=== PATIENT | male | born 1985 | race Caucasian/White ===

== ENCOUNTER 2018-02-08 17:52 | Emergency (ER) | payer OTHER ==
[~2018-02-08] VITALS: Ht 172.7 cm; Wt 88.5 kg
[2018-02-08] MEDS ORDERED: WELLBUTRIN SR100 MG ORAL (18:08)
[2018-02-08 18:13] VITALS: BP 124/77
[2018-02-08] MEDS ORDERED: IBUPROFEN600 MG ORAL (18:55)
[2018-02-08 19:00] VITALS: BP 124/77
--- NOTE | 2018-02-08 21:40 | Emergency Room Report ---
History of Present Illness General Chief Complaint: Syncope Source: Patient Present Illness HPI 32-year-old male resents to ED status post syncopal episode. States that he was lifting in the gym when he felt dizzy and passed out. Witnessed falling backwards and hitting his head. Patient states he woke up from the ground and completed his workout. Patient is complaining of pain to the back of his head, 3 out of 10, dull, nonradiating. Denies any neck pain. Denies any chest pain or shortness of breath. Denies any dizziness. States that the gym was very hot today, felt stuffy. 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 Denies any cardiac history. No other aggravating relieving factors. Denies any other associated symptoms Allergies: Coded Allergies: No Known Allergies (Unverified , 02/08/18) Patient History Past Medical History: none Past Surgical History: none Pertinent Family History: none Social History: Denies: smoking, alcohol use, drug use Immunizations: UTD Reviewed Nursing Documentation: PMH: Agreed; PSxH: Agreed Review of Systems All Other Systems: negative except mentioned in HPI Physical Exam Vital Signs Date Time Temp Pulse Resp B/P (MAP) Pulse Ox O2 Delivery O2 Flow Rate FiO2 02/08/18 18:03 98.1 91 17 124/77 96 Room Air 98.1 Sp02 EP Interpretation: reviewed, normal General Appearance: no apparent distress, alert, GCS 15, non-toxic Head: normocephalic, atraumatic Eyes: bilateral eye normal inspection, bilateral eye PERRL ENT: hearing grossly normal, normal pharynx, no angioedema, normal voice Neck: full range of motion, supple/symm/no masses Respiratory: chest non-tender, lungs clear, normal breath sounds, speaking full sentences Cardiovascular #1: regular rate, rhythm, no edema Cardiovascular #2: 2+ carotid (R), 2+ carotid (L), 2+ radial (R), 2+ radial (L) , 2+ dorsalis pedis (R), 2+ dorsalis pedis (L) Gastrointestinal: normal bowel sounds, non tender, soft, non-distended, no guarding, no rebound Rectal: deferred Genitourinary: normal inspection, no CVA tenderness Musculoskeletal: back normal, gait/station normal, normal range of motion, non- tender Neurologic: alert, oriented x3, responsive, motor strength/tone normal, sensory intact, speech normal Psychiatric: judgement/insight normal, memory normal, mood/affect normal, no suicidal/homicidal ideation Reflexes: 3+ bicep (R), 3+ bicep (L), 3+ tricep (R), 3+ tricep (L), 3+ knee (R) , 3+ knee (L) Skin: normal color, no rash, warm/dry, well hydrated Lymphatic: no adenopathy Medical Decision Making Diagnostic Impression: Primary Impression: Head injury Qualified Codes: S09.90XA - Unspecified injury of head, initial encounter Additional Impression: Syncope Qualified Codes: R55 - Syncope and collapse ER Course Hospital Course 32 yo M presents to ED c/o headache, s/p syncope. Differential diagnoses include: skull fx, intracranial injury, concussion Clinical course Patient placed on stretcher. After initial history and physical I ordered CT head and EKG CT head shows no acute process. EKG - NSR, no acute ischemic changes interpreted by me Discussed findings with the patient. Given no cardiac risk factors, I dont believe further workup indicated at this time. Patient safely discharged recommend close follow-up with PMD Diagnosis - head injury, syncope Stable and discharged to home. Followup with PMD. Return to ED if symptoms recur or worsen EKG Diagnostic Results Rate: normal Rhythm: NSR ST Segments: no acute changes ASA given to the pt in ED: No Rhythm Strip Diag. Results EP Interpretation: yes Rhythm: NSR, no PVC's, no ectopy CT/MRI/US Diagnostic Results CT/MRI/US Diagnostic Results : Imaging Test Ordered: CT Head Impression no acute process Last Vital Signs Date Time Temp Pulse Resp B/P (MAP) Pulse Ox O2 Delivery O2 Flow Rate FiO2 02/08/18 19:00 98.1 70 17 124/77 96 Room Air 98.1 Status: improved Disposition: HOME, SELF-CARE Condition: Stable Scripts Ibuprofen* (MOTRIN*) 600 Mg Tablet 600 MG ORAL Q8H PRN for For Pain, #30 TAB 0 Refills Prov: Matthew Vega MD 02/08/18 Referrals: [facility] (PCP) Patient Instructions: Head Injury, Adult, Syncope Matthew Vega MD Feb 08, 2018 21:40
--- NOTE | 2018-02-09 09:13 | Diagnostic Imaging Report ---
Indication: Syncopal episode today Technique: Continuous helical CT scanning of the head was performed without intravenous contrast material. Axial and coronal 5 mm sections were generated. Radiation dose was minimized using automated exposure control Dose: Total Dose Length Product - DLP 1351.[address] Dose Index - CTDIvol(s) 70.38 mGy. Comparison: none Findings: The ventricular system is normal in size and configuration. There is no shift of midline structures. No abnormal extra-axial fluid collections are noted. There is no evidence of intracerebral bleeding. No other abnormal high or low density areas are noted within the brain. Normal trejo-white differentiation. There is considerable ethmoid sinus mucosal thickening. The orbits are unremarkable. The mastoids are clear. Impression: Normal CT scan of the head without contrast material. Incidental finding of sinus disease This agrees with the preliminary interpretation provided overnight by [facility]. The CT scanner at [facility] is accredited by the [employer] and the scans are performed using protocols designed to limit radiation exposure to as low as reasonably achievable to attain images of sufficient resolution adequate for diagnostic evaluation.
== END 2018-02-08 19:00 | disposition home or self-care (01) ==
LOC: EMR 18:41
DX: S09.8XXA Other specified injuries of head, initial encounter (principal); W19.XXXA Unspecified fall, initial encounter; Y93.B3 Activity, free weights; Y92.39 Other specified sports and athletic area as the place of occurrence of the external cause; R55 Syncope and collapse
CPT/HCPCS: 70450; 93005; 99284

== ENCOUNTER 2018-04-01 17:34 | Emergency (ER) | payer OTHER ==
[~2018-04-01] VITALS: Ht 172.7 cm; Wt 90.7 kg
[~2018-04-01 17:34] MED LIST: IBUPROFEN600 MG ORAL; WELLBUTRIN SR100 MG ORAL
[2018-04-01 17:47] VITALS: BP 131/65
[2018-04-01] MEDS ORDERED: Lidocaine 1% Plain 30 ml INJ ONE (18:00)
[2018-04-01] MEDS ORDERED: Bacitracin Oint UD TOPIC ONE (18:15)
--- NOTE | 2018-04-01 18:39 | Emergency Room Report ---
History of Present Illness General Chief Complaint: General Complaint Source: Patient Present Illness HPI Pt. presents to the ED c/o 03/31 in severity pain, swelling, and erythema of the left great toe. Reports purulent drainage from the cuticle area of his toe. Patient reports he's been doing warm water soaks. Patient reports that he has had an ingrown toenail for quite some time however it is now painful and infected. Denies fevers or chills. Denies numbness tingling or loss of sensation or gross motor movements of the extremities, incontinence of bowel or bladder. Denies CP, Palpitations, LOC, AMS, dizziness, Changes in Vision, weakness or a sudden severe headache. Allergies: Coded Allergies: No Known Allergies (Unverified , 02/08/18) Patient History Past Medical History: see triage record Past Surgical History: none Nursing Documentation-[facility] Past Medical History: No History, Except For Review of Systems All Other Systems: negative except mentioned in HPI Physical Exam Vital Signs Date Time Temp Pulse Resp B/P (MAP) Pulse Ox O2 Delivery O2 Flow Rate FiO2 04/01/18 17:40 97.7 94 20 131/65 95 Room Air 97.7 Sp02 EP Interpretation: reviewed, normal General Appearance: no apparent distress, alert, GCS 15, non-toxic Head: normocephalic, atraumatic Eyes: bilateral eye normal inspection, bilateral eye PERRL ENT: hearing grossly normal, normal voice Neck: full range of motion Respiratory: lungs clear, normal breath sounds, speaking full sentences Cardiovascular #1: regular rate, rhythm, normal capillary refill Musculoskeletal: back normal, gait/station normal, normal range of motion, inflammation - cuticle lines of the right great toe, ingrown nail on both sided , swelling and erythema noted. Neurologic: alert, oriented x3, responsive, motor strength/tone normal, sensory intact, speech normal, grossly normal Psychiatric: judgement/insight normal Skin: normal color, no rash, warm/dry, well hydrated Procedures Additional Procedure Procedure Narrative Wedge resection procedure: - verbal permission was obtained. - extremity involved is the Right Great Toe -5cc of Lidocaine 1% plain was injected in a digital block fashion, good anesthesia was obtained. - The extremity was Cleaned and draped in a sterile fashion - The each lateral aspect of the nail was exposed and isolated from the nail bed. -Section of the lateral aspect of the nail was cut by sterile scissors. - bleeding was controlled with direct pressure. -Sterile dressing was applied. Pt. tolerated the procedure well, there were no complications. Medical Decision Making PA Attestation Dr. Buchanan is my supervising Physician whom patient management has been discussed with. Diagnostic Impression: Primary Impression: Ingrown toenail of left foot with infection ER Course Pt. presents to the ED c/o 03/31 in severity pain, swelling, and erythema of the left great toe. Reports purulent drainage from the cuticle area of his toe. Patient reports he's been doing warm water soaks. Patient reports that he has had an ingrown toenail for quite some time however it is now painful and infected. Denies fevers or chills. Denies numbness tingling or loss of sensation or gross motor movements of the extremities, incontinence of bowel or bladder. Denies CP, Palpitations, LOC, AMS, dizziness, Changes in Vision, weakness or a sudden severe headache. Ddx considered but are not limited to cellulitis, paronychia, eponychia, ingrown toe nail, fracture, d/L, gout Vital signs: are WNL, pt. is afebrile H&PE are most consistent with ingrown toe nail of the left great toe, secondary infection noted. ORDERS: none required at this time, the diagnosis is clinical ED INTERVENTIONS: - verbal consent was received . - Wedge Resection procedure performed -Patient is provided with crutches and instructed on their use - will d/c pt. with PO abx. DISCHARGE: At this time pt. is stable for d/c to home. Will provide printed patient care instructions, and any necessary prescriptions. Care plan and follow up instructions have been discussed with the patient prior to discharge. Last Vital Signs Date Time Temp Pulse Resp B/P (MAP) Pulse Ox O2 Delivery O2 Flow Rate FiO2 04/01/18 17:47 97.7 20 131/65 95 Room Air 97.7 04/01/18 17:40 94 Disposition: HOME, SELF-CARE Condition: Stable Scripts Bacitracin/Polymyxin B Sulfate (BACITRACIN-POLYMYXIN OINTMENT) 28.35 Gm Oint...g. 1 APPLIC TP BID, #28.3 GM Prov: Katie Aj 04/01/18 Ibuprofen* (MOTRIN*) 600 Mg Tablet 600 MG ORAL THREE TIMES A DAY, #30 TAB 0 Refills Prov: Katie Aj 04/01/18 Hydrocodone Bit/Acetaminophen 5-325* (NORCO 5-325*) 1 Each Tablet 1 TAB ORAL Q6H PRN for For Pain, #9 TAB 0 Refills Prov: Katie Aj 04/01/18 Clindamycin Hcl (CLINDAMYCIN HCL) 300 Mg Capsule 300 MG ORAL FOUR TIMES A DAY for 7 Days, #28 CAP Prov: Katie Aj 04/01/18 Referrals: [facility] (PCP) Patient Instructions: Ingrown Toenail, Paronychia Additional Instructions: Take medications as directed. Follow up with a Primary Care Provider in 3-5 days, even if your symptoms have resolved. Return sooner to ED if new symptoms occur, or current symptoms become worse. Do not drink alcohol, drive, or operate heavy machinery while taking [place] as this may cause drowsiness. - Please note that this Emergency Department Report was dictated using [employer] management coordinator technology software, occasionally this can lead to erroneous entry secondary to interpretation by the dictation equipment. Katie Aj Apr 01, 2018 18:39
[2018-04-01] MEDS ORDERED: IBUPROFEN600 MG ORAL (19:22)
[2018-04-01] MEDS ORDERED: CLINDAMYCIN HC300 MG ORAL (19:22)
[2018-04-01] MEDS ORDERED: NORCO 5-325 TA1 EACH ORAL (19:22)
[2018-04-01] MEDS ORDERED: BACITRACIN-P28.35 GM TP (19:22)
[2018-04-01 19:45] VITALS: BP 131/65
== END 2018-04-01 19:46 | disposition home or self-care (01) ==
LOC: EMR 17:58
DX: L60.0 Ingrowing nail (principal); L08.9 Local infection of the skin and subcutaneous tissue, unspecified
CPT/HCPCS: 11765; 99283; J2001; Z7502

== ENCOUNTER 2018-12-09 15:07 | Emergency (ER) | payer OTHER ==
[~2018-12-09] VITALS: Ht 172.7 cm; Wt 79.4 kg
[~2018-12-09 15:07] MED LIST changes: +BACITRACIN-P28.35 GM TP; +CLINDAMYCIN HC300 MG ORAL; +NORCO 5-325 TA1 EACH ORAL
[2018-12-09] MEDS ORDERED: BUPROPION XL300 MG ORAL (15:20)
[2018-12-09] MEDS ORDERED: Lidocaine 1% Plain 30 ml INJ ONE (15:30)
[2018-12-09] MEDS ORDERED: Bacitracin Oint UD TOPIC ONE (15:30)
--- NOTE | 2018-12-09 15:32 | Emergency Room Report ---
History of Present Illness General Chief Complaint: Skin Rash/Abscess Source: Patient Present Illness HPI 33-year-old male patient presents ER complaining of "I think I have an ingrown toenail". Reports symptoms have been present for the past 2 weeks. Reports pain in his right big toe. Reports history of similar symptoms in the past, states he was treated here and had a wedge resection performed. Denies drainage from toe. Denies fever, chest pain, shortness of breath. Reports he was not able to follow-up with [facility] following his initial visit. 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 Allergies: Coded Allergies: No Known Allergies (Unverified , 02/08/18) Patient History Past Medical History: see triage record Reviewed Nursing Documentation: PMH: Agreed; PSxH: Agreed Nursing Documentation-PMH Past Medical History: No History, Except For Hx Neurological Problems: Yes - depression Review of Systems All Other Systems: negative except mentioned in HPI Physical Exam Vital Signs Date Time Temp Pulse Resp B/P (MAP) Pulse Ox O2 Delivery O2 Flow Rate FiO2 12/09/18 15:17 98.1 95 14 121/75 97 Room Air Sp02 EP Interpretation: reviewed, normal General Appearance: well appearing, no apparent distress, alert, GCS 15, non- toxic Head: normocephalic, atraumatic Eyes: bilateral eye normal inspection, bilateral eye PERRL ENT: hearing grossly normal, normal pharynx, no angioedema, normal voice, uvula midline, moist mucus membranes Neck: full range of motion Respiratory: lungs clear, normal breath sounds, no rhonchi, no respiratory distress, no accessory muscle use, no wheezing, speaking full sentences Cardiovascular #1: regular rate, rhythm, no edema Cardiovascular #2: 2+ dorsalis pedis (R), 2+ dorsalis pedis (L) Musculoskeletal: back normal, digits/nails normal, gait/station normal, normal range of motion, non-tender Psychiatric: mood/affect normal Skin: other - Obvious ingrown toenail of right big toe with subcutaneous pus noted at the medial nail border, no surrounding erythema or edema, no drainage, no felon Procedures Additional Procedure Procedure Narrative Ingrown toenail. Obtained verbal consent for procedure. Toenail and surrounding areas cleaned and prepped with Betadine solution and normal saline. Digital block performed using 5ml 1% lidocaine without epi. After achieving appropriate anesthesia, nail freed from nail bed with blunt dissection using hemostats and dissected section removed after cutting with scissors. Direct pressure used to achieve hemostasis. Toe was then flushed with copious amounts of saline, bacitracin, Xeroform, gauze and tape were applied. Patient tolerated procedure well without complication WBAT with post-op shoe. Will discharge home with abx and pain medication. Medical Decision Making PA Attestation Dr. Vega is my supervising Physician whom patient management has been discussed with. Diagnostic Impression: Primary Impression: Ingrown toenail ER Course Pt. presents to the ED c/o toe pain. Ddx considered but are not limited to ingrown toenail, nail avulsion, paronychia , felon, cellulitis, tinea unguinum. Vital signs: are WNL, pt. is afebrile ER COURSE: Physical exam shows: ingrown toenail noted with superimposed infection See procedure note for wedge resection of medial toenail of right big toe performed. Informed patient can wash it tomorrow, but do not soak in water. Apply topical abx and redress wound. Followup with [facility]/PCP in 1-2 weeks, provided with contact information for [facility], contact to schedule appt. Wound check in 2-3 days. ER precautions given. Will discharge patient home with oral and topical abx. Take Tylenol for pain ER precautions given. DISCHARGE: At this time pt is stable for d/c to home. Patient is resting comfortably, in no acute distress, nontoxic appearing, talking without difficulty. Patient to take medications as instructed Will provide with patient care instructions and any necessary prescriptions. Care plan and follow-up instructions provided. Patient instructed to follow-up with primary care provider in 3 - 5 days. Patient questions asked and answered. Patient reports understanding and agreement to treatment plan. ER precautions given. Patient instructed to return to ER immediately for any new or worsening of symptoms including but not limited to increasing SOB, persistent fever, chest pain, intractable vomiting. - Please note that this Emergency Department Report was dictated using [employer] greaser technology software, occasionally this can lead to erroneous entry secondary to interpretation by the dictation equipment. Last Vital Signs Date Time Temp Pulse Resp B/P (MAP) Pulse Ox O2 Delivery O2 Flow Rate FiO2 12/09/18 15:17 98.1 95 14 121/75 97 Room Air Status: improved Disposition: HOME, SELF-CARE Condition: Stable Scripts Acetaminophen* (TYLENOL EXTRA STRENGTH*) 500 Mg Tablet 500 MG ORAL Q8H PRN for Prn Headache/Temp > 101, #30 TAB 0 Refills Prov: Maximo Lewis 12/09/18 Bacitracin/Polymyxin B Sulfate (BACITRACIN-POLYMYXIN OINTMENT) 28.35 Gm Oint...g. 1 APPLIC TP BID, #28 GM Prov: Maximo Lewis 12/09/18 Amoxicillin/Potassium Clav 875-125* (AUGMENTIN 875-125 TABLET*) 1 Each Tablet 1 TAB ORAL TWICE A DAY for 7 Days, #14 TAB Prov: Maximo Lewis 12/09/18 Patient Instructions: Ingrown Toenail Additional Instructions: Followup with primary care provider/[facility] or return to ER in 2-3 days for wound check. Followup with [facility] in 1-2 weeks. Follow-up with [facility]. Keep clean and dry. Take medications as directed. Take Tylenol as needed for pain and swelling symptoms. Patient questions asked and answered. ER precautions given, patient instructed to return to ER immediately for any new or worsening of symptoms. Maximo Lewis Dec 09, 2018 15:32
[2018-12-09 15:37] VITALS: BP 121/75
[2018-12-09] MEDS ORDERED: TYLENOL EXTRA500 MG ORAL (16:20)
[2018-12-09] MEDS ORDERED: BACITRACIN-P28.35 GM TP (16:20)
[2018-12-09] MEDS ORDERED: AUGMENTIN 875-1 EAC1 ORAL (16:20)
[2018-12-09 16:39] VITALS: BP 121/75
== END 2018-12-09 16:40 | disposition home or self-care (01) ==
LOC: EMR 15:30
DX: L60.0 Ingrowing nail (principal); M25.571 Pain in right ankle and joints of right foot; F32.9 Major depressive disorder, single episode, unspecified
CPT/HCPCS: 11750; 99283; J2001; Z7502

== ENCOUNTER 2019-03-08 20:57 | Emergency (ER) | payer OTHER ==
[~2019-03-08] VITALS: Ht 170.2 cm; Wt 88.0 kg
[~2019-03-08 20:57] MED LIST changes: +AUGMENTIN 875-1 EAC1 ORAL; +BUPROPION XL300 MG ORAL; +TYLENOL EXTRA500 MG ORAL
--- NOTE | 2019-03-08 22:00 | NUR ---
ED Nurse Note: Pt ambulated to ED from home c/o 05/31 pain in L big toe, ingrown and red. Painful to walk. VSS. patient is alert and oriented x4, states that he does not know how long this has been. will wait for further orders
[2019-03-08] MEDS ORDERED: Bacitracin Oint UD TOPIC ONE (22:09)
[2019-03-08] MEDS ORDERED: DOXYCYCLINE MO100 MG ORAL (22:12)
[2019-03-08] MEDS ORDERED: MUPIROCIN22 GM TOPIC (22:12)
[2019-03-08] MEDS ORDERED: IBUPROFEN600 MG ORAL (22:12)
--- NOTE | 2019-03-08 22:13 | Emergency Room Report ---
History of Present Illness General Chief Complaint: Lower Extremity Injury Source: Patient Present Illness HPI 33-year-old male with history of ingrown toenail. He presents with chief complaint of painful ingrown toenail. Is been ongoing for a long period time but worse in the last week. Mostly to the left toe. No drainage but redness and swelling. He is try to remove it himself but unsuccessful. Pain is 8 out of 10. No nausea no vomiting. No fever chills. Allergies: Coded Allergies: No Known Allergies (Unverified , 02/08/18) Patient History Past Medical History: see triage record, old chart reviewed Past Surgical History: none Pertinent Family History: none Social History: Denies: smoking Immunizations: other Reviewed Nursing Documentation: PMH: Agreed; PSxH: Agreed Nursing Documentation-PMH Hx Gastrointestinal Problems: Yes - umbilical hernia Hx Neurological Problems: Yes - depression Review of Systems Eye: Denies: eye pain, blurred vision ENT: Denies: ear pain, nose congestion, throat swelling Respiratory: Denies: cough, shortness of breath Cardiovascular: Denies: chest pain, palpitations Gastrointestinal: Denies: abdominal pain, diarrhea, nausea, vomiting Musculoskeletal: Denies: back pain, joint pain Skin: Denies: rash Neurological: Denies: headache, numbness Endocrine: Denies: increased thirst, increased urine Hematologic/Lymphatic: Denies: easy bruising All Other Systems: negative except mentioned in HPI Physical Exam Vital Signs Date Time Temp Pulse Resp B/P (MAP) Pulse Ox O2 Delivery O2 Flow Rate FiO2 03/08/19 21:36 97.5 77 18 125/71 (89) 93 Room Air Vitals normal Sp02 EP Interpretation: reviewed, normal General Appearance: well appearing, no apparent distress, alert Head: normocephalic, atraumatic Eyes: bilateral eye PERRL, bilateral eye EOMI ENT: hearing grossly normal, normal pharynx Neck: full range of motion, supple, no meningismus Respiratory: chest non-tender, lungs clear, normal breath sounds Cardiovascular #1: regular rate, rhythm, no murmur Gastrointestinal: normal bowel sounds, non tender, no mass, no organomegaly, no bruit, non-distended Musculoskeletal: back normal, gait/station normal, normal range of motion, other - Onychomycosis toes. Toe: On the lateral aspect of the nail is ingrown and erythema. No drainage. Psychiatric: mood/affect normal Procedures Additional Procedure Procedure Narrative Procedure: Partial matrixectomy Indication: Infected ingrown toenail Description: I did a digital block and local anesthetic with 1% lidocaine without epinephrine. I remove part of the toenail. Patient tolerated procedure without any problem. Medical Decision Making Diagnostic Impression: Primary Impression: Ingrown toenail with infection ER Course With infected ingrown toenail. No evidence of abscess. Will discharge home. Last Vital Signs Date Time Temp Pulse Resp B/P (MAP) Pulse Ox O2 Delivery O2 Flow Rate FiO2 03/08/19 21:36 97.5 77 18 125/71 (89) 93 Room Air Status: improved Disposition: HOME, SELF-CARE Condition: Stable Scripts Ibuprofen* (MOTRIN*) 600 Mg Tablet 600 MG ORAL THREE TIMES A DAY, #30 TAB 0 Refills Prov: Wil Sim MD 03/08/19 Doxycycline Monohydrate* (DOXYCYCLINE MONOHYDRATE*) 100 Mg Capsule 100 MG ORAL Q12H, #14 CAP 0 Refills Prov: Wil Sim MD 03/08/19 Mupirocin* (MUPIROCIN*) 22 Gm Oint...g. 1 APPLIC TOPIC THREE TIMES A DAY, #22 GM Prov: Wil Sim MD 03/08/19 Additional Instructions: Keep wound clean. Follow-up in 7 days for recheck. Return if worse. Wil Sim MD Mar 08, 2019 22:13
[2019-03-08 23:00] VITALS: BP 125/71
--- NOTE | 2019-03-08 23:00 | NUR ---
ER DISCHARGE NOTE: Patient is cleared to be discharged per ERMD, pt is aox4, on room air, with stable vital signs. pt was given dc and prescription instructions, pt was able to verbalize understanding, pt id band removed without complications. pt is able to ambulate with steady gait. pt took all belongings.
[2019-03-09] MEDS ORDERED: Bacitracin Oint UD TOPIC ONE
== END 2019-03-08 23:15 | disposition home or self-care (01) ==
LOC: EMR 21:15
DX: L60.0 Ingrowing nail (principal); K42.9 Umbilical hernia without obstruction or gangrene; F32.9 Major depressive disorder, single episode, unspecified
CPT/HCPCS: 99283

== ENCOUNTER 2019-07-01 16:12 | Emergency (ER) | payer OTHER ==
[~2019-07-01] VITALS: Ht 172.7 cm; Wt 83.9 kg
[~2019-07-01 16:12] MED LIST changes: +DOXYCYCLINE MO100 MG ORAL; +MUPIROCIN22 GM TOPIC
[2019-07-01 16:28] VITALS: BP 160/78
--- NOTE | 2019-07-01 16:46 | Emergency Room Report ---
History of Present Illness General Chief Complaint: Skin Rash/Abscess Source: Patient, Medical Record Present Illness HPI 34-year-old male with history of recurrent ingrown toenail due to wearing improper shoes and workout here complaining of another toe infection and ingrown toenail x2 days. Patient reports that he has not yet been seen by cut out worker as it is difficult for him to get a referral through his primary. Patient was recently seen for the same complaint back in February 2019 and prior to that few months prior to February. Has not yet made an appointment with cut out worker. Denies fever and chills, has not taken medication for symptom relief. Patient demands for the toenail to be removed and reports that the last time that it was removed [facility] it was done incorrectly. Patient has full range of motion and no motor or sensory deficits noted. Rating pain 10/10 without radiation. Mild cellulitic changes noted around toenail however seems like it is secondary to infection post removal of the part of toenail. Allergies: Coded Allergies: No Known Allergies (Unverified , 02/08/18) Patient History Past Medical History: see triage record Past Surgical History: unable to obtain Pertinent Family History: none Immunizations: UTD Reviewed Nursing Documentation: PMH: Agreed; PSxH: Agreed Nursing Documentation-PMH Hx Gastrointestinal Problems: Yes - umbilical hernia Hx Neurological Problems: Yes - depression Review of Systems All Other Systems: negative except mentioned in HPI Physical Exam Vital Signs Date Time Temp Pulse Resp B/P (MAP) Pulse Ox O2 Delivery O2 Flow Rate FiO2 07/01/19 16:28 98.4 100 18 160/78 (105) 95 Room Air Sp02 EP Interpretation: reviewed, normal General Appearance: no apparent distress, alert, GCS 15, non-toxic Head: normocephalic, atraumatic Eyes: bilateral eye normal inspection, bilateral eye PERRL ENT: hearing grossly normal, normal pharynx, no angioedema, normal voice Neck: full range of motion, supple/symm/no masses Respiratory: chest non-tender, lungs clear, normal breath sounds, no rhonchi, no wheezing, speaking full sentences Cardiovascular #1: regular rate, rhythm, no edema, no murmur, normal capillary refill Cardiovascular #2: 2+ dorsalis pedis (R), 2+ dorsalis pedis (L) Gastrointestinal: normal bowel sounds, non tender, soft, non-distended, no guarding, no rebound Rectal: deferred Genitourinary: no CVA tenderness Musculoskeletal: gait/station normal, normal range of motion, non-tender, no calf tenderness, swelling - right big toe Neurologic: alert, oriented x3, responsive, motor strength/tone normal, sensory intact, speech normal Psychiatric: judgement/insight normal, memory normal, mood/affect normal, no suicidal/homicidal ideation Skin: other - cellulitis right big toe Lymphatic: no adenopathy Medical Decision Making PA Attestation Diagnosis and treatment plans were reviewed and discussed with my supervising physician Dr. Whitten Diagnostic Impression: Primary Impression: Infection of toenail ER Course 34-year-old male with history of recurrent ingrown toenail due to wearing improper shoes and workout here complaining of another toe infection and ingrown toenail x2 days. Patient reports that he has not yet been seen by cut out worker as it is difficult for him to get a referral through his primary. Patient was recently seen for the same complaint back in February 2019 and prior to that few months prior to February. Has not yet made an appointment with cut out worker. Denies fever and chills, has not taken medication for symptom relief. Patient demands for the toenail to be removed and reports that the last time that it was removed [facility] it was done incorrectly. Patient has full range of motion and no motor or sensory deficits noted. Rating pain 10/10 without radiation. Mild cellulitic changes noted around toenail however seems like it is secondary to infection post removal of the part of toenail. Ddx considered but are not limited to : Cellulitis, infected ingrown toenail, superficial infection, abscess Vital signs: are WNL, pt. is afebrile H&PE are most consistent with: Infected toenail secondary to ingrown toenail ORDERS: Keflex, ibuprofen ED INTERVENTIONS: None required at this time. DISCHARGE: At this time pt. is stable for d/c to home. Will provide printed patient care instructions, and any necessary prescriptions. Care plan and follow up instructions have been discussed with the patient prior to discharge. Due to recurrences of the same infection and ingrown toenail patient to follow -up with cut out worker as this is not recommended at this time to be removed for more time in the emergency room setting. Also patient reports fever proper sandals and avoid strenuous physical activity and pressure to the foot. And follow-up with primary care. If worsening symptoms return to the emergency room. Last Vital Signs Date Time Temp Pulse Resp B/P (MAP) Pulse Ox O2 Delivery O2 Flow Rate FiO2 07/01/19 16:28 98.4 100 18 160/78 (105) 95 Room Air Disposition: HOME, SELF-CARE Condition: Stable Scripts Mupirocin (MUPIROCIN) 15 Gm Cream..g. 1 APPLIC TOPIC THREE TIMES A DAY, #15 GM Prov: Patrica Devlin 07/01/19 Ibuprofen (Ibu) 800 Mg Tablet 800 MG PO TID, #30 TAB Prov: Patrica Devlin 07/01/19 Cephalexin* (KEFLEX*) 500 Mg Capsule 500 MG ORAL EVERY 6 HOURS for 7 Days, #28 CAP Prov: Patrica Devlin 07/01/19 Patient Instructions: Ingrown Toenail Additional Instructions: Follow-up with cut out worker regarding your ingrown toenail as it is now infected secondary to the previous removal. This is a recurrent issue that you need to be seen by a cut out worker. At this time the infection is over the site of previous ingrown toenail removal. It is not mariee for any further removal in the emergency room setting. Avoid wearing compact and tight shoes. Patrica Devlin Jul 01, 2019 16:46
[2019-07-01] MEDS ORDERED: MUPIROCIN15 GM TOPIC (16:49)
[2019-07-01] MEDS ORDERED: CEPHALEXIN500 MG ORAL (16:49)
[2019-07-01] MEDS ORDERED: IBU800 MG PO (16:49)
[2019-07-01 17:00] VITALS: BP 152/70
--- NOTE | 2019-07-01 17:00 | NUR ---
ER DISCHARGE NOTE: Pt was seen due to right big toe abscess. Patient is cleared to be discharged per PA, pt is aox4, on room air, with stable vital signs. pt was given dc and prescription instructions, pt was able to verbalize understanding, pt id band removed. AAO x4 and Pt left with all his belongings.
== END 2019-07-01 17:00 | disposition home or self-care (01) ==
LOC: EMR 16:49
DX: L03.031 Cellulitis of right toe (principal); F32.9 Major depressive disorder, single episode, unspecified
CPT/HCPCS: 99282